=== PATIENT | female | born 1995 | race Caucasian/White ===

== ENCOUNTER 2022-07-23 10:17 | Outpatient (CLI) | payer OTHER ==
[~2022-07-23 10:17] MED LIST: FOLIC ACID1 MG PO; LEVO-T75 MCG PO; PRENATAL TABLE1 EAC4 PO
== END 2022-07-23 10:22 | disposition home or self-care (01) ==
LOC: PPH VACUNA 10:17
PROVIDERS: ATTEND Emergency Medicine Pediatric Emergency Medicine
DX: Z23 Encounter for immunization (principal)

== ENCOUNTER 2023-04-14 03:42 | Emergency (ER) | payer OTHER ==
[~2023-04-14] VITALS: Ht 172.7 cm; Wt 81.6 kg
== END 2023-04-14 07:42 | disposition home or self-care (01) ==
LOC: ER 03:42
DX: K52.9 Noninfective gastroenteritis and colitis, unspecified (principal)

== ENCOUNTER 2023-12-21 13:55 | Emergency (ER) | payer OTHER ==
[~2023-12-21] VITALS: Ht 172.7 cm; Wt 88.5 kg
[2023-12-21 16:02] LABS: HEMATOCRIT 37.1 % (36.0-45.00); HEMOGLOBIN 12.6 g/dL (12.0-15.00); MEAN CELL VOLUME 86.6 fL (80.00-100.00); MEAN CORPUSCULAR HEMOGLOBIN 29.5 pg (27.00-32.0); PLATELET COUNT 209 K/uL (150-450); RED BLOOD COUNT 4.29 M/uL (4.00-6.00); RED CELL DISTRIBUTION WIDTH 14.2 % (11.5-14.5)
[2023-12-21 16:46] LABS: ALBUMIN 3.6 gm/dL (3.4-5.0); BILIRUBIN TOTAL 0.42 mg/dL (0.3-1.2); CALCIUM 9.1 mg/dL (8.5-10.1); CREATININE SERUM 0.68 mg/dL (0.55-1.02); GFR 103.79; GLOBULINA 3.5 G/DL (2.4-3.5); POTASSIUM 3.65 mEq/L (3.5-5.1); TOTAL PROTEIN 7.1 gm/dL (6.4-8.2)
== END 2023-12-21 17:26 | disposition home or self-care (01) ==
LOC: ER 13:55
PROVIDERS: General Practice
DX: O20.8 Other hemorrhage in early pregnancy (principal); Z3A.08 8 weeks gestation of pregnancy

== ENCOUNTER 2023-12-24 16:58 | Emergency (ER) | payer OTHER ==
[~2023-12-24] VITALS: Ht 172.7 cm; Wt 86.2 kg
[2023-12-24 18:01] LABS: HEMATOCRIT 37.6 % (36.0-45.00); HEMOGLOBIN 12.9 g/dL (12.0-15.00); MEAN CELL VOLUME 86.7 fL (80.00-100.00); MEAN CORPUSCULAR HEMOGLOBIN 29.8 pg (27.00-32.0); MEAN CORPUSCULAR HGB CONC 34.3 g/dl (32.0-36.0); PLATELET COUNT 212 K/uL (150-450); RED BLOOD COUNT 4.34 M/uL (4.00-6.00); RED CELL DISTRIBUTION WIDTH 14.3 % (11.5-14.5)
[2023-12-24 18:20] LABS: INR 0.98; PARTIAL THROMBOPLASTIN TIME 27.9 SECONDS (22.0-34.0); PROTHROMBIN TIME 10.3 SECONDS (9.0-11.5)
[2023-12-24 18:28] LABS: ALBUMIN 3.6 gm/dL (3.4-5.0); BILIRUBIN TOTAL 0.19 mg/dL (0.3-1.2); CALCIUM 9.5 mg/dL (8.5-10.1); CREATININE SERUM 0.74 mg/dL (0.55-1.02); GFR 94.14; GLOBULINA 3.8 G/DL (2.4-3.5); POTASSIUM 3.54 mEq/L (3.5-5.1); TOTAL PROTEIN 7.4 gm/dL (6.4-8.2)
== END 2023-12-24 19:41 | disposition home or self-care (01) ==
LOC: ER 16:58
PROVIDERS: General Practice
DX: O20.8 Other hemorrhage in early pregnancy (principal); Z3A.01 Less than 8 weeks gestation of pregnancy

== ENCOUNTER 2024-06-02 20:05 | Emergency (ER) | payer OTHER ==
[~2024-06-02] VITALS: Ht 172.7 cm; Wt 79.4 kg
[2024-06-02] MEDS ORDERED: SYNTHROID75 MCG (20:37)
[2024-06-02 21:15] LABS: HEMATOCRIT 36.4 % (36.0-45.00); HEMOGLOBIN 12.4 g/dL (12.0-15.00); MEAN CORPUSCULAR HEMOGLOBIN 29.4 pg (27.00-32.0); MEAN CORPUSCULAR HGB CONC 34.2 g/dl (32.0-36.0); PLATELET COUNT 194 K/uL (150-450); RED BLOOD COUNT 4.23 M/uL (4.00-6.00); RED CELL DISTRIBUTION WIDTH 13.9 % (11.5-14.5)
[2024-06-02] MEDS ORDERED: SYNTHROID100 MCG PO (22:41)
== END 2024-06-02 23:40 | disposition home or self-care (01) ==
LOC: ER 20:06
PROVIDERS: General Practice
DX: N93.8 Other specified abnormal uterine and vaginal bleeding (principal)